=== PATIENT | male | born 1970 | race Caucasian/White ===

== ENCOUNTER 2020-10-22 22:07 | Inpatient (IN) | payer OTHER ==
[~2020-10-22] VITALS: Ht 190.5 cm; Wt 114.7 kg
[2020-10-22] MEDS ORDERED: IBUPROFEN 800 MG (MOTRIN) TAB PO ONE (23:00)
[2020-10-22] MEDS ORDERED: NS IV 1000 ML 1,000 ML IV SCH (23:00)
[2020-10-22] MEDS ORDERED: ACETAMINOPHEN 500 MG TAB (TYLENOL) PO ONE (23:00)
[2020-10-22 23:33] LABS: BILIRUBIN,URINE NEGATIVE (NEGATIVE); CLARITY,URINE CLEAR; COLOR,URINE YELLOW; GLUCOSE, URINE (UA) NEGATIVE (NEGATIVE); KETONES,URINE NEGATIVE (NEGATIVE); LEUKOCYTE ESTERASE ,URINE NEGATIVE (NEGATIVE); NITRITE,URINE NEGATIVE (NEGATIVE); PROTEIN,URINE NEGATIVE (NEGATIVE)
[2020-10-22 23:37] LABS: PROTHROMBIN TIME PATIENT 13.5 SEC (12.2-14.7)
[2020-10-22 23:38] LABS: BACTERIA,URINE TRACE /HPF; RBC,URINE 0-2 /HPF; SQUAMOUS EPITHELIAL CELL,UR RARE /HPF
[2020-10-23 00:04] LABS: BASOPHILS % (AUTO) 0 % (0-10); EOSINOPHILS # (AUTO) 0.1 10^3/uL (0.0-0.3); EOSINOPHILS % (AUTO) 1 % (0-10); HEMATOCRIT 42 % (40-54); HEMOGLOBIN 14.1 g/dL (13.3-17.7); LYMPHOCYTES # (AUTO) 0.5 10^3/uL (1.0-4.0); LYMPHOCYTES % (AUTO) 6 % (12-44); MEAN CORPUSCULAR HEMOGLOBIN 29 pg (25-34); MEAN CORPUSCULAR HGB CONC 34 g/dL (32-36); MEAN CORPUSCULAR VOLUME 86 fL (80-99); MEAN PLATELET VOLUME 10.3 fL (9.0-12.2); MONOCYTES # (AUTO) 0.5 10^3/uL (0.0-1.0); MONOCYTES % (AUTO) 7 % (0-12); NEUTROPHILS # (AUTO) 7.2 10^3/uL (1.8-7.8); NEUTROPHILS % (AUTO) 87 % (42-75); PLATELET COUNT 151 10^3/uL (130-400); WHITE BLOOD COUNT 8.2 10^3/uL (4.3-11.0)
[2020-10-23 00:08] LABS: ALBUMIN 3.9 GM/DL (3.2-4.5); CHLORIDE 103 MMOL/L (98-107); POTASSIUM 3.8 MMOL/L (3.6-5.0); SODIUM 136 MMOL/L (135-145)
[2020-10-23 00:10] LABS: CALCIUM 8.7 MG/DL (8.5-10.1)
[2020-10-23 00:11] LABS: GLUCOSE 110 MG/DL (70-105); TOTAL PROTEIN 6.5 GM/DL (6.4-8.2)
[2020-10-23 00:12] LABS: CARBON DIOXIDE 24 MMOL/L (21-32)
[2020-10-23 00:13] LABS: BILIRUBIN,TOTAL 0.7 MG/DL (0.1-1.0)
[2020-10-23 00:14] LABS: ALKALINE PHOSPHATASE 69 U/L (40-136)
[2020-10-23 00:15] LABS: CREATININE SERUM 1.11 MG/DL (0.60-1.30); GFR ESTIMATED > 60
[2020-10-23 00:16] LABS: BUN/CREATININE RATIO 17
[2020-10-23 00:17] LABS: ALANINE AMINOTRANSFERASE 82 U/L (0-55)
[2020-10-23 00:30] LABS: ERYTHROCYTE SEDIMENTATION RATE 7 MM/HR (0-15)
[2020-10-23] MEDS ORDERED: PIPERACILLIN/TAZO 4.5 GM VIAL (ZOSYN) IV ONE ×2 (00:42→05:44)
[2020-10-23] MEDS ORDERED: NS (IVPB) 100 ML ONE ×2 (00:42→05:44)
[2020-10-23] MEDS ORDERED: PIPERACILLIN/TAZOBACTAM (BULK) 4.5 GM in NS (IVPB) 100 ML IV ONE (00:45)
--- NOTE | 2020-10-23 01:08 | ED General ---
General Chief Complaint: Fever-Adult/Adol Stated Complaint: FEVER Nursing Triage Note: PATIENT STATES STARTED FEELING RUN DOWN AROUND NOON TODAY AND HAD A LOW GRADE FEVER WITH A TEMP MAX OF 100.0, TOOK TYLENOL AND LATER IN THE DAY NOTICED HAD REDNESS AND "PIN/NEEDLE" FEELING IN HIS TOES. WENT TO [facility] WAS TESTED FOR COVID WITH A RAPID TEST SHOWING NEGITIVE, FLU NEGITIVE, SENT HERE TO LAB FOR BLOOD WORK WITH RESULTS ACCORDING TO PATIENT OF AN "ELEVATED WBC COUNT". WAS PRESCRIBED BACTRIM AND GIVEN A "SHOT" OF ANTIBIOTIC. PRESENTS TONIGHT TOLD BY [facility] FOR D DIMER AND FOLLOW UP CARE. ALERT AND ORIENTED X4, CALL LIGHT IN REACH Nursing Sepsis Screen: Possible Sepsis Risk Source of Information: Patient History of Present Illness Date Seen by Provider: Oct 22, 2020 Time Seen by Provider: 22:50 Initial Comments PT ARRIVES VIA POV STATES HE BEGAN FEELING A LITTLE TIRED AROUND 10 AM TODAY, NOTICED FEVER OF 100 AROUND NOON SHORTLY AFTER THAT, PT BEGAN TO HAVE DISCOMFORT IN BOTH OF HIS FEET--PAIN AND "PINS AND NEEDLES" IN BOTH FEET AND NOTICED THAT BOTH FEET WERE RED. WENT TO [facility] FOR THIS PROBLEM AND HAD OUTPATIENT LAB DONE HERE, ALSO HAD NEGATIVE RAPID COVID-19 AND FLU TESTS THERE. ADDITIONALLY, PT GOT A CAT SCRATCH TO HIS LEFT SHOULDER 2-3 DAYS AGO AND THE AREA IS NOW RED, SWOLLEN AND TENDER. HE WAS GIVEN A SHOT OF UNKNOWN ANTIBIOTIC AND RX FOR BACTRIM AND HAS TAKEN 1 DOSE PT WAS CALLED THIS EVENING BY [facility] AND WAS TOLD TO COME HERE BECAUSE OF ELEVATED D-DIMER. PT HAS NOT TAKEN ANYTHING FOR HIS SYMPTOMS NO LOSS OF TASTE OR SMELL NO SORE THROAT NO COUGH NO SHORTNESS OF BREATH NO GI SYMPTOMS NO HEADACHE NO BODY ACHES NO NECK PAIN OR STIFFNESS NO URINARY SYMPTOMS PT IS NORMALLY HEALTHY, NO CHRONIC MEDICAL ILLNESSES, NO PRIOR HOSPITALIZATIONS OR SURGERIES. DOES NOT TAKE ANY MEDICATIONS PT DOES NOT SMOKE, DRINK OR USE DRUGS PCP: OCTAVIO AT DR. SHERYL OLIVARES Allergies and Home Medications Allergies Coded Allergies: No Known Drug Allergies (Unverified , 10/22/20) Patient Home Medication List Home Medication List Reviewed: Yes Review of Systems Review of Systems Constitutional: see HPI; No chills, No diaphoresis, No dizziness; fever, malaise EENTM: no symptoms reported; No nose congestion, No throat pain Respiratory: no symptoms reported; No cough, No short of breath, No wheezing Cardiovascular: no symptoms reported; No chest pain, No edema, No palpitations, No syncope, No vascular heart diseas Gastrointestinal: no symptoms reported; No abdominal pain, No diarrhea, No loss of appetite, No nausea, No vomiting Genitourinary: no symptoms reported Musculoskeletal: no symptoms reported Skin: see HPI Psychiatric/Neurological: See HPI; Denies Headache; Paresthesia, Tingling; Denies Weakness Hematologic/Lymphatic: No Symptoms Reported Immunological/Allergic: no symptoms reported Past Iihrujo-Emklcy-Mwvmun Hx Past Med/Social Hx: Reviewed and Corrections made Patient Social History Alcohol Use: Occasionally Uses Drug of Choice: DENIES Smoking Status: Never a Smoker Recent Infectious Disease Expo: No Recent Hopitalizations: No Immunizations Up To Date Date of Influenza Vaccine: Jul 12, 2020 Seasonal Allergies Seasonal Allergies: No Past Medical History Surgeries: No Respiratory: No Cardiac: No Neurological: No Genitourinary: No Gastrointestinal: No Musculoskeletal: No Endocrine: No HEENT: No Cancer: No Psychosocial: No Integumentary: No Blood Disorders: No Physical Exam Vital Signs Vital Signs - First Documented 10/22/20 10/23/20 22:40 01:50 Temp 38.2 Pulse 106 Resp 20 B/P (MAP) 130/89 (103) Pulse Ox 98 O2 Delivery Room Air Capillary Refill : Less Than 3 Seconds Height, Weight, BMI Height: '" Weight: lbs. oz. kg; 31.00 BMI Method: General Appearance: No Apparent Distress, WD/WN HEENT: PERRL/EOMI, TMs Normal, Normal ENT Inspection, Pharynx Normal Neck: Full Range of Motion, Normal Inspection, Non Tender, Supple; No Lymphadenopathy (L), No Lymphadenopathy (R) Respiratory: Normal Breath Sounds, No Accessory Muscle Use, No Respiratory Distress Cardiovascular: Regular Rate, Rhythm, No JVD, No Murmur, Normal Peripheral Pulses Gastrointestinal: Normal Bowel Sounds, No Organomegaly, No Pulsatile Mass, Non Tender, Soft Back: Normal Inspection, No CVA Tenderness, No Vertebral Tenderness Extremity: Normal Capillary Refill, Normal Range of Motion, No Calf Tenderness, Pedal Edema (1+ BILATERALLY), Other (LEFT SHOULDER WITH SCABBED WOUND WITH YELLOW CRUST, SURROUNDING ERYTHEMA, TENDERNESS AND MILD SWELLING OF 14 X 6 CM. N O FLUCTUANCE, NO DRAINAGE, NO STREAKS. BILATERAL FEET WITH 1+ EDEMA. BOTH FEET ERYTHEMATOUS, WITH MUCH MORE PRONOUNCED ERYTHEMA TO ALL TOES/DISTAL 1/3 OF FEET. ADDITIONALLY, BOTH FEET AND LOWER LEGS WITH DIFFUSE PETECHIAE--EXTENDS TO JUST BELOW KNEES BILATERALLY--THIS IS SYMMETRIC. GOOD CAPILLARY REFILL BILATERALLY. HYPERSENSITIVE--STATES IT FEELS LIKE PINS AND NEEDLES. ) Neurologic/Psychiatric: Alert, Oriented x3, No Motor/Sensory Deficits, Normal Mood/Affect, landscape crew member II-XII Norm as Tested Skin: Warm/Dry, Other (ALL SKIN IS FLUSHED. LOWER LEGS NOTED ABOVE. NO PALMAR RASH, NO PETECHIAE NOTED ANYWHERE ELSE, EXCEPT ON LOWER LEGS AND FEET. ) Focused Exam Lactate Level 10/22/20 22:55: Lactic Acid Level 0.88 Lactic Acid Level Progress/Results/Core Measures Suspected Sepsis Recent Fever Within 48 Hours: Yes Infection Criteria Present: Suspected New Infection New/Unexplained Altered Menta: No Sepsis Screen: Possible Sepsis Risk SIRS Temperature: Pulse: 106 Respiratory Rate: 20 Laboratory Tests 10/22/20 23:43: White Blood Count 8.2 Blood Pressure 130 /89 Mean: 103 10/22/20 22:55: Lactic Acid Level 0.88 Laboratory Tests 10/22/20 22:55: INR Comment 1.0 10/22/20 23:43: Creatinine 1.11, Platelet Count 151, Total Bilirubin 0.7 Results/Orders Lab Results Laboratory Tests Test 10/22/20 22:53 10/22/20 22:55 10/22/20 23:18 10/22/20 23:22 Range/Units Coronavirus 2019 ([facility]) Negative Negative Prothrombin Time 13.5 12.2-14.7 SEC INR Comment 1.0 0.8-1.4 Activated Partial Thromboplast Time 29 24-35 SEC Lactic Acid Level 0.88 0.50-2.00 MMOL/L Group A Streptococcus Screen NEGATIVE NEGATIVE Urine Color YELLOW Urine Clarity CLEAR Urine pH 6.0 5-9 Urine Specific [place] 1.020 1.016-1.022 Urine Protein NEGATIVE NEGATIVE Urine Glucose (UA) NEGATIVE NEGATIVE Urine Ketones NEGATIVE NEGATIVE Urine Nitrite NEGATIVE NEGATIVE Urine Bilirubin NEGATIVE NEGATIVE Urine Urobilinogen 0.2 < = 1.0 MG/DL Urine Leukocyte Esterase NEGATIVE NEGATIVE Urine RBC (Auto) TRACE-I NEGATIVE Urine RBC 0-2 /HPF Urine WBC NONE /HPF Urine Squamous Epithelial Cells RARE /HPF Urine Crystals NONE /LPF Urine Bacteria TRACE /HPF Urine Casts NONE /LPF Urine Mucus SMALL H /LPF Urine Culture Indicated NO Test 10/22/20 23:43 10/23/20 01:03 Range/Units White Blood Count 8.2 4.3-11.0 10^3/uL Red Blood Count 4.88 4.30-5.52 10^6/uL Hemoglobin 14.1 13.3-17.7 g/dL Hematocrit 42 40-54 % Mean Corpuscular Volume 86 80-99 fL Mean Corpuscular Hemoglobin 29 25-34 pg Mean Corpuscular Hemoglobin Concent 34 32-36 g/dL Red Cell Distribution Width 12.6 10.0-14.5 % Platelet Count 151 130-400 10^3/uL Mean Platelet Volume 10.3 9.0-12.2 fL Immature Granulocyte % (Auto) 0 % Neutrophils (%) (Auto) 87 H 42-75 % Lymphocytes (%) (Auto) 6 L 12-44 % Monocytes (%) (Auto) 7 0-12 % Eosinophils (%) (Auto) 1 0-10 % Basophils (%) (Auto) 0 0-10 % Neutrophils # (Auto) 7.2 1.8-7.8 10^3/uL Lymphocytes # (Auto) 0.5 L 1.0-4.0 10^3/uL Monocytes # (Auto) 0.5 0.0-1.0 10^3/uL Eosinophils # (Auto) 0.1 0.0-0.3 10^3/uL Basophils # (Auto) 0.0 0.0-0.1 10^3/uL Immature Granulocyte # (Auto) 0.0 0.0-0.1 10^3/uL Erythrocyte Sedimentation Rate 7 0-15 MM/HR Sodium Level 136 135-145 MMOL/L Potassium Level 3.8 3.6-5.0 MMOL/L Chloride Level 103 98-107 MMOL/L Carbon Dioxide Level 24 21-32 MMOL/L Anion Gap 9 5-14 MMOL/L Blood Urea Nitrogen 19 H 7-18 MG/DL Creatinine 1.11 0.60-1.30 MG/DL Estimat Glomerular Filtration Rate > 60 BUN/Creatinine Ratio 17 Glucose Level 110 H 70-105 MG/DL Calcium Level 8.7 8.5-10.1 MG/DL Corrected Calcium 8.8 8.5-10.1 MG/DL Total Bilirubin 0.7 0.1-1.0 MG/DL Aspartate Amino Transf (AST/SGOT) 66 H 5-34 U/L Alanine Aminotransferase (ALT/SGPT) 82 H 0-55 U/L Alkaline Phosphatase 69 40-136 U/L Lactate Dehydrogenase 246 H 125-220 U/L C-Reactive Protein High Sensitivity 7.07 H 0.00-0.50 MG/DL Total Protein 6.5 6.4-8.2 GM/DL Albumin 3.9 3.2-4.5 GM/DL Procalcitonin 0.22 H <0.10 NG/ML Monoscreen NEGATIVE NEGATIVE My Orders Orders - QUIQUE CRYSTAL DO Ed Iv/Invasive Line Start (10/22/20 22:55) Monitor-Rhythm Ecg Trace Only (10/22/20 22:55) Cbc With Automated Diff (10/22/20 22:55) Comprehensive Metabolic Panel (10/22/20 22:55) Hs C Reactive Protein (10/22/20 22:55) Lactic Acid Analyzer (10/22/20 22:55) Procalcitonin (Pct) (10/22/20 22:55) Protime With Inr (10/22/20 22:55) Partial Thromboplastin Time (10/22/20 22:55) Ua Culture If Indicated (10/22/20 22:55) Blood Culture (10/22/20 22:55) Erythrocyte Sedimentation Rate (10/22/20 22:55) Ibuprofen Tablet (Motrin Tablet) (10/22/20 23:00) Acetaminophen Tablet (Tylenol Tablet) (10/22/20 23:00) Ed Iv/Invasive Line Start (10/22/20 22:57) Ns Iv 1000 Ml (Sodium Chloride 0.9%) (10/22/20 23:00) Monotest (10/22/20 23:14) Rapid Strep A Screen (10/22/20 23:14) LDH (10/22/20 23:36) Covid 19 Inhouse Test (10/22/20 23:36) Chest 1 View, Ap/Pa Only (10/23/20 00:01) Piperacillin/Tazobactam (Bulk) (Zosyn In (10/23/20 00:45) Coronavirus Sars-Cov-2 So 2019 (10/23/20 00:43) Piperacillin Sodium/Tazobactam (Zosyn Vi (10/23/20 00:42) Ns (Ivpb) (Sodium Chloride 0.9% Ivpb Bag (10/23/20 00:42) Medications Given in ED Current Medications Medications Dose Ordered Sig/Gregg Route Start Time Stop Time Status Last Admin Dose Admin Acetaminophen 1,000 mg ONCE ONCE PO 10/22/20 23:00 10/22/20 23:01 DC 10/22/20 23:14 1,000 MG Ibuprofen 800 mg ONCE ONCE PO 10/22/20 23:00 10/22/20 23:01 DC 10/22/20 23:14 800 MG Vital Signs/I&O 10/22/20 10/22/20 10/22/20 10/23/20 22:40 23:14 23:14 01:50 Temp 38.2 38.2 38.2 Pulse 106 86 Resp 20 12 B/P (MAP) 130/89 (103) 97/61 Pulse Ox 98 93 O2 Delivery Room Air 10/23/20 02:38 Pulse Ox 96 O2 Delivery Room Air Capillary Refill : Less Than 3 Seconds Blood Pressure Mean: 103 Progress Note : Progress Note PLACED IN ISOLATION ROOM PPE WORN AT ALL TIMES COVID-19 TESTING PERFORMED GIVEN TYLENOL, MOTRIN AND IV FLUIDS GIVEN ANTIBIOTICS NO DETERIORATION IN PT'S CONDITION DURING ER STAY Diagnostic Imaging Comments CXR--NO ACUTE PROCESS, PENDING RADIOLOGIST REVIEW Reviewed: Reviewed by Me Departure Communication (Admissions) 0033--SPOKE WITH DR. ANDUJAR, HOSPITALIST, ACCEPTS PT FOR ADMIT. Impression Primary Impression: Cellulitis of left shoulder Additional Impressions: Vasculitis Person under investigation for COVID-19 CAT SCRATCH WITH CELLULITIS LEFT SHOULDER Disposition: ADMITTED INPATIENT Condition: Stable Admissions Decision to Admit Reason: Admit from ER (General) Decision to Admit/Date: Oct 23, 2020 Time/Decision to Admit Time: 00:35 Departure-Patient Inst. Referrals: NO,LOCAL PHYSICIAN (PCP/Family) Primary Care Physician QUIQUE CRYSTAL DO Oct 23, 2020 01:08
--- NOTE | 2020-10-23 01:40 | NUR ---
REPORT TO KODY GAMEZ
--- NOTE | 2020-10-23 02:05 | NUR ---
JESSICA KEENAN admitted to room 404-1, with an admitting diagnosis of CELLULITIS L SHOULDER DUE TO CAT SCRATCH, VASCULITIS BILATERAL LEGS AND FEET; ANNIE IBARRA, on 10/23/20 from ED via , accompanied by STAFF.JESSICA KEENAN introduced to surroundings, call light, bed controls, phone, TV, temperature control, lights, meal times, smoking policy, visitor policy, side rail policy, bathrooms and showers. Patient Rights given to patient in the handbook.JESSICA KEENAN verbalizes understanding that [facility] is not responsible for the loss or damage to any personal effects or valuables that are kept in the patients posession during their hospitalization.
[2020-10-23] MEDS ORDERED: fentaNYL INJECTION 100 MCG/2 ML AMP IV PRN (03:00)
[2020-10-23] MEDS ORDERED: ACETAMINOPHEN 500 MG TAB (TYLENOL) PO PRN (03:00)
[2020-10-23] MEDS ORDERED: IBUPROFEN 800 MG (MOTRIN) TAB PO PRN (03:00)
[2020-10-23] MEDS ORDERED: 1/2 NS IV SOLUTION 1,000 ML IV SCH ×2 (03:00→17:15)
[2020-10-23 05:51] LABS: BASOPHILS % (AUTO) 0 % (0-10); EOSINOPHILS # (AUTO) 0.1 10^3/uL (0.0-0.3); EOSINOPHILS % (AUTO) 1 % (0-10); HEMATOCRIT 44 % (40-54); LYMPHOCYTES # (AUTO) 0.5 10^3/uL (1.0-4.0); LYMPHOCYTES % (AUTO) 8 % (12-44); MEAN CORPUSCULAR HEMOGLOBIN 29 pg (25-34); MEAN CORPUSCULAR HGB CONC 33 g/dL (32-36); MEAN CORPUSCULAR VOLUME 88 fL (80-99); MONOCYTES # (AUTO) 0.4 10^3/uL (0.0-1.0); MONOCYTES % (AUTO) 6 % (0-12); NEUTROPHILS # (AUTO) 5.8 10^3/uL (1.8-7.8); NEUTROPHILS % (AUTO) 85 % (42-75); WHITE BLOOD COUNT 6.9 10^3/uL (4.3-11.0)
[2020-10-23 06:13] LABS: ALBUMIN 3.8 GM/DL (3.2-4.5); CHLORIDE 107 MMOL/L (98-107); POTASSIUM 3.7 MMOL/L (3.6-5.0); SODIUM 137 MMOL/L (135-145)
[2020-10-23 06:14] LABS: CALCIUM 8.7 MG/DL (8.5-10.1)
[2020-10-23 06:15] LABS: GLUCOSE 108 MG/DL (70-105); TOTAL PROTEIN 6.3 GM/DL (6.4-8.2)
[2020-10-23 06:16] LABS: CARBON DIOXIDE 21 MMOL/L (21-32)
[2020-10-23 06:17] LABS: BILIRUBIN,TOTAL 1.1 MG/DL (0.1-1.0)
[2020-10-23 06:19] LABS: ALKALINE PHOSPHATASE 69 U/L (40-136); CREATININE SERUM 1.05 MG/DL (0.60-1.30); GFR ESTIMATED > 60
[2020-10-23 06:20] LABS: BUN/CREATININE RATIO 16
[2020-10-23 06:22] LABS: ALANINE AMINOTRANSFERASE 155 U/L (0-55)
[2020-10-23] MEDS: PIPERACILLIN/TAZO 4.5 GM/NS 100 ML IV SCH ×6 (06:31→21:37)
--- NOTE | 2020-10-23 06:39 | Diagnostic Imaging Report ---
Clinical indication: Patient with fever. Exam: Portable chest x-ray upright view. Comparisons: None. Findings: Lungs/pleura: Lungs are clear. There is no pneumothorax. There is no pleural effusion. Mediastinum: Unremarkable. Pulmonary vasculature: Unremarkable. Heart: Unremarkable. Bones/extrathoracic soft tissue: There are mildly hypertrophic spurs involving the thoracic spine. Impression: There is no radiographic evidence of acute cardiopulmonary process. Dictated by: Dictated on workstation # [id number]
[2020-10-23 08:34] VITALS: BP 115/67
[2020-10-23] MEDS ORDERED: ACET-2267 PO (09:12)
[2020-10-23] MEDS ORDERED: BUTA1TAB9 PO (09:12)
[2020-10-23] MEDS ORDERED: IBUP-2473 PO (09:12)
--- NOTE | 2020-10-23 09:30 | NUR ---
SPOKE WITH THE PT (CALLED HIS ROOM PHONE) AND WENT THRU THE EXT MED HISTORY TO COMPLETE THE MED REC ON 10-22-2020 PT WAS PRESCRIBED AMOX/CLAV 875/125MG #20/10DS BY [facility], THE PT DID PICK THIS UP BUT HAD NOT STARTED TAKING PRIOR TO BEING ADMITTED. FOR THIS REASON I DID NOT INCLUDE THIS ON THE MED REC OTC MEDS: IBUPROFEN TYLENOL Addendum: 10/23/20 at 0948 by STEPHANIE ORNELAS CPhT AT THIS TIME I DID INCLUDE THE AMOX/CLAV ON THE MED REC FOR DISCHARGE PURPOSES
[2020-10-23] MEDS ORDERED: AMOX1TAB12 PO (09:47)
--- NOTE | 2020-10-23 10:52 | History & Physical-Hospitalist ---
History of Present Illness HPI/Chief Complaint Pt is a 50yoCM with no PMH who presented to the ER from [facility] urgent care for cellulitis. He reports that yesterday he noticed that his feet were tingling and he felt run down. He also developed a fever. He took a shower and his noted that he had some swelling and redness on his shoulder where he had been scratched by a cat a few days ago. He decided to seek evaluation at the [facility] Urgent Care and was found to be persistently febrile with an elevated d-dimer and referred to the ER for evaluation. He was swabbed from COVID there and here and the [place] have both been negative. Send out is pending. He reports feeling better today and that the swelling on his legs and feet have improved but erythema is still present. I attempted to call and update her as well but no answer and voicemail box was full. Source: patient Exam Limitations: no limitations Date Seen 10/23/20 Time Seen by a Provider: 10:46 Attending Physician Jaren Ha MD PCP No,Local Physician Referring Physician Date of Admission Oct 23, 2020 at 00:35 Home Medications & Allergies Home Medications Reviewed patient Home Medication Reconciliation performed by pharmacy medication reconciliations transport tank technician and/or nursing. Patients Allergies have been reviewed. Allergies Allergies Coded Allergies No Known Drug Allergies (Unverified10/22/20) Past Nbxujoe-Rcmmto-Ojbxlf Hx Past Med/Social Hx: Reviewed Nursing Past Med/Soc Hx Patient Social History Marrital Status: Alcohol Use: Occasionally Uses Recreational Drug Use: No Drug of Choice: DENIES Smoking Status: Never a Smoker Recent Foreign Travel: No Contact w/other who traveled: No Recent Hopitalizations: No Recent Infectious Disease Expo: No Immunizations Up To Date Date of Influenza Vaccine: Jul 12, 2020 Seasonal Allergies Seasonal Allergies: No Past Medical History History of Blood Disorders: No Family History Reviewed Nursing Family Hx No Pertinent Family Hx Review of Systems Constitutional: fever, malaise EENTM: No hoarseness, No nose congestion Respiratory: No cough, No short of breath Cardiovascular: No chest pain, No Hx of Intervention, No palpitations Gastrointestinal: No abdominal pain, No constipation, No nausea, No vomiting Genitourinary: No discharge, No dysuria Musculoskeletal: see HPI Skin: see HPI Psychiatric/Neurological: No Symptoms Reported Physical Exam Physical Exam Vital Signs Vital Signs - First Documented 10/22/20 10/23/20 22:40 01:50 Temp 38.2 Pulse 106 Resp 20 B/P (MAP) 130/89 (103) Pulse Ox 98 O2 Delivery Room Air Capillary Refill : Less Than 3 Seconds Height, Weight, BMI Height: '" Weight: lbs. oz. kg; 31.60 BMI Method: General Appearance: No Apparent Distress, WD/WN HEENT: PERRL/EOMI, Moist Mucous Membranes Neck: Normal Inspection, Supple Respiratory: Lungs Clear, No Accessory Muscle Use, No Respiratory Distress Cardiovascular: Regular Rate, Rhythm, No JVD, No Murmur Gastrointestinal: Normal Bowel Sounds, Non Tender, Soft Rectal: Deferred Extremity: Non Tender, No Calf Tenderness, No Pedal Edema, Other (inflammation noted on bilateral feet with erythema at bases of toes, no appreciable edema today) Neurologic/Psychiatric: Alert, Oriented x3 Skin: Erythema (on feet as noted above, cellulitis noted on left shoulder with erythema within demarcation and no crusting from abrasion) Results Results/Procedures Labs Laboratory Tests 10/22/20 23:43 10/23/20 05:11 Patient resulted labs reviewed. Imaging: Reviewed Imaging Report Imaging [facility] [place], [place] NAME: JESSICA KEENAN [facility] REC#: [id number] PT STATUS: ADM IN : 1970 PHYSICIAN: QUIQUE CRYSTAL DO ADMIT DATE: 10/23/20 Signed Date of Exam:10/23/20 CHEST 1 VIEW, AP/PA ONLY Clinical indication: Patient with fever. Exam: Portable chest x-ray upright view. Comparisons: None. Findings: Lungs/pleura: Lungs are clear. There is no pneumothorax. There is no pleural effusion. Mediastinum: Unremarkable. Pulmonary vasculature: Unremarkable. Heart: Unremarkable. Bones/extrathoracic soft tissue: There are mildly hypertrophic spurs involving the thoracic spine. Impression: There is no radiographic evidence of acute cardiopulmonary process. Dictated by: Dictated on workstation # [id number] Dict: 10/23/20 0623 Trans: 10/23/20 0845 JAYDEN [id number] Interpreted by: PEACE CHAND MD Electronically signed by: PEACE CHAND MD 10/23/20 0845 Assessment/Plan Admission Diagnosis Sepsis Admission Status: Inpatient Order (span 2 midnights) Reason for Inpatient Admission: see below Assessment and Plan Sepsis Cellulitis of shoulder Concern for cat scratch disease- start on azithro Continue Zosyn Feeling better today clinically Await cultures If remains febrile consider echo COVID pending Thrombocytopenia Down to 98 this AM from 151 last night Trend Discussed with Dr Jaime, consulted, appreciate assistance Has not received Lovenox Smear ordered Transaminitis trend Diagnosis/Problems Diagnosis/Problems (1) Cat scratch Status: Acute (2) Thrombocytopenia Status: Acute (3) Transaminitis Status: Acute (4) Cellulitis of left shoulder Status: Acute (5) Person under investigation for COVID-19 Status: Acute (6) Sepsis RAMA LOPEZ MD Oct 23, 2020 10:51
[2020-10-23] MEDS ORDERED: AZITHROMYCIN 250 MG TAB (ZITHROMAX) PO ONE (11:00)
[2020-10-23] MEDS ORDERED: ACET/BUTAL/CAFF (FIORICET) TAB PO PRN (11:00)
[2020-10-23 11:09] LABS: ABSOLUTE RETIC # 76 10e9/uL (24-90); RETICULOCYTE % 1.54 % (0.50-2.40)
[2020-10-23 11:12] LABS: HEMOGLOBIN 14.4 g/dL (13.3-17.7); MEAN PLATELET VOLUME 11.9 fL (9.0-12.2); PLATELET COUNT 131 10^3/uL (130-400)
[2020-10-23 11:24] LABS: FIBRIN DEGRADATION PRODUCTS 5.12 UG/ML (0.00-0.49); INR 1.1 (0.8-1.4); PROTHROMBIN TIME PATIENT 14.5 SEC (12.2-14.7)
[2020-10-23 11:55] LABS: BASOPHILS % (MANUAL) 1 %; EOSINOPHILS % (MANUAL) 1 %; LYMPHOCYTES % (MANUAL) 9 %; MONOCYTES % (MANUAL) 7 %; NEUTROPHILS % (MANUAL) 82 %
[2020-10-23 11:56] LABS: ACANTHOCYTES SLIGHT; BURR CELLS SLIGHT; TOXIC GRANULATION/VACUOLAZATIO 1+
--- NOTE | 2020-10-23 13:41 | NUR ---
"RD ASSESSMENT PMHx: no significant PMH PT INTERACTION: Received dietary consult for MST score. Note pt is currently COVID PUI, per chart review. Note all diet information for consult is per Srinivasa RN or per chart review. Srinivasa states current appetite appears good. Note PO intake 100% x1meal, per chart review. Srinivasa states no issues with n/v/c/d that he is aware of, and that his last BM was 10/22. Note pt not currently on bowel regimen per chart review. Note unable to determine recent wt hx, per chart review. Note unable to complete visual assessment d/t isolation precautions. Note unable to determine if pt meets criteria for malnutrition at this time. Est. kcal needs: [id number] kcal | 15-20 kcal/kg Est. Pro needs: 92-115 g Pro | 0.8-1.0 g Pro/kg PES STATEMENT: Given current PO intake, no nutrition diagnosis at this time (NO-1.1). INTERVENTION: Continue with current diet order of 2000mg Na diet. Will continue to follow and reassess as pt needs, intake, and status change. Sarah LOVELACE, MS RD LD [phone] cell"
--- NOTE | 2020-10-23 14:56 | Diagnostic Imaging Report ---
PROCEDURE: US Venous Lower Ext Leonel. TECHNIQUE: Multiple real-time grayscale images were obtained over the lower extremities in various projections, bilaterally. Additional duplex Doppler and color Doppler images were also obtained. INDICATION: Elevated d-dimer and leg swelling. FINDINGS: There is no evidence of right or left lower extremity DVT. Both lower extremity deep venous systems show normal compressibility with normal response to augmentation and Valsalva. No fluid collection or mass is detected. IMPRESSION: No evidence of right or left lower extremity DVT. Dictated by: Dictated on workstation # [id number]
[2020-10-23 16:00] VITALS: BP 120/72
[2020-10-23] MEDS: MICONAZOLE 2% POWDER (DESENEX AF) 90 GM TOP SCH (20:11)
--- NOTE | 2020-10-23 20:55 | CONSULTATION REPORT ---
DATE OF SERVICE: 10/23/2020 The patient is admitted to room 404. REFERRING PHYSICIAN: Maira Lake MD IMPRESSION: 1. A 50-year-old male admitted with febrile illness. 2. History of a feral cat scratch on the left shoulder with surrounding erythema consistent with cellulitis. 3. Erythema and swelling of both lower extremities, probably related to sepsis. 4. Thrombocytopenia of undetermined etiology, rule out DIC from sepsis versus medication induced, especially piperacillin. Continue to monitor. RECOMMENDATIONS: 1. Continue management of cellulitis/sepsis as you are doing. 2. Monitor CBC, CMP, DIC panel and C-reactive protein serially. 3. If he is improving from the infection standpoint and the platelet counts are continuing to decrease, may need to discontinue piperacillin. 4. If the platelet count is starting to improve along with a DIC panel, then most likely this was related to early sepsis and DIC and continue current treatment. 5. We will follow the patient with you. BRIEF HISTORY: The patient is a 50-year-old male, who complained of not feeling well and had a fever yesterday. He was initially evaluated at urgent care and then sent to the emergency room for further evaluation. He gave history of feral cat which scratched him on the left shoulder 4-5 days ago. He complained of that area being red and painful yesterday. He also complained of redness and swelling in his lower extremities since yesterday. He was evaluated at the emergency room with a diagnosis of cellulitis/sepsis and admitted to the hospital. Initial platelet count was 159,000 with a repeat today morning at 98,000. This was later corrected to 131,000, but a hematology consult was requested because of the unexplained thrombocytopenia. PAST MEDICAL HISTORY: Unremarkable with no major medical problems. PAST SURGICAL HISTORY: Left eye surgery during childhood following a trauma and a dental extraction in his teenage years. He has had a Agustin fundoplication done for gastroesophageal reflux disease approximately 8 or 9 years ago. SOCIAL HISTORY: The patient is and lives in [facility]. He has two children, aged 11 and 9 years, who lives at home. He denied any tobacco use and uses alcohol socially averaging 2 drinks 2 or 3 times a week. Denied any recreational drug use. 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 FAMILY HISTORY: Only significant for his father, who of coronary artery disease in his 70s and a brother who had a CVA in his 60s. PHYSICAL EXAMINATION: GENERAL: Today showed middle-aged male, moderately obese, awake and oriented, in no acute distress. VITAL SIGNS: His temperature was 36.9, pulse rate of 80, respirations 18, blood pressure 120/72, and oxygen saturation 98% on room air. His temperature at the time of admission was 38.2 degrees centigrade. HEENT: Normocephalic, extraocular muscles intact, conjunctivae pink, oral mucosa moist. NECK: Supple, with no JVD. No cervical, supraclavicular or axillary lymphadenopathy palpable. CHEST: Examination of the chest showed laceration in the left shoulder area from the cat scratch. There is surrounding erythema, which has been marked, this has not spread beyond the nakita on my evaluation and the patient mentioned that this is less red or painful than yesterday. Chest was symmetrical. LUNGS: Clear to auscultation without wheezes or rales. CARDIOVASCULAR: Regular in rate and rhythm. No murmurs or gallops heard. ABDOMEN: Slightly obese, soft, nontender with no hepatosplenomegaly or other masses palpable. EXTREMITIES: Showed some erythema of both feet and around his ankles, and this is fading according to the patient. His labs were reviewed. CBC done at the time of admission showed WBC 8.2, hemoglobin 14.1, platelet count of 151,000 with neutrophil count 7.2 and lymphocyte count 0.5. Repeat done today morning showed WBC 6.9, hemoglobin 14.4 and platelet count of 131,000, which was initially reported as 98,000. Differential count showed neutrophil count 5.8 and lymphocyte count 0.5. Absolute reticulocyte count was 76,000. Chemistry panel done at the time of admission showed normal electrolytes. BUN was 19 and creatinine 1.11 with GFR more than 60 mL per minute. Total bilirubin was 0.7, AST 66, ALT 82 with rest of the liver function studies within normal limits. C-reactive protein was elevated at 7.07. Repeat chemistry panel done today morning showed total bilirubin at 1.1, AST 145 and ALT 155. COVID-19 rapid screen was negative with PCR testing pending. Group A strep screen was negative and mono screen was negative. DIC panel done today morning showed protime at 14.5 with INR of 1.1. Fibrinogen was 381 and D-dimer was elevated at 5.12. Urinalysis done yesterday at the time of admission was unremarkable. Thank you for allowing me to participate in this patient's care. I will follow the patient with you and make appropriate recommendations. Job ID: [id number] DocumentID: [id number] Dictated Date: 10/23/2020 17:27:21 Engineering Scientist Date: 10/23/2020 20:53:48 Dictated By: FEDERICO PRESTON MD
[2020-10-23 23:00] VITALS: BP 119/65
[2020-10-24] MEDS: PIPERACILLIN/TAZO 4.5 GM/NS 100 ML IV SCH ×6 (05:25→20:33)
[2020-10-24 06:12] LABS: HEMOGLOBIN 13.7 g/dL (13.3-17.7)
[2020-10-24 06:14] LABS: MEAN PLATELET VOLUME 11.2 fL (9.0-12.2)
[2020-10-24 06:19] LABS: ALBUMIN 3.6 GM/DL (3.2-4.5); CHLORIDE 107 MMOL/L (98-107); POTASSIUM 4.2 MMOL/L (3.6-5.0); SODIUM 139 MMOL/L (135-145)
[2020-10-24 06:20] LABS: CALCIUM 8.7 MG/DL (8.5-10.1)
[2020-10-24 06:21] LABS: GLUCOSE 106 MG/DL (70-105); TOTAL PROTEIN 6.3 GM/DL (6.4-8.2)
[2020-10-24 06:23] LABS: BILIRUBIN,TOTAL 1.1 MG/DL (0.1-1.0); CARBON DIOXIDE 24 MMOL/L (21-32)
[2020-10-24 06:25] LABS: ALKALINE PHOSPHATASE 112 U/L (40-136); CREATININE SERUM 0.95 MG/DL (0.60-1.30); FIBRIN DEGRADATION PRODUCTS 0.81 UG/ML (0.00-0.49); GFR ESTIMATED > 60; INR 1.1 (0.8-1.4); PROTHROMBIN TIME PATIENT 14.1 SEC (12.2-14.7)
[2020-10-24 06:26] LABS: BUN/CREATININE RATIO 13
[2020-10-24 06:28] LABS: ALANINE AMINOTRANSFERASE 242 U/L (0-55)
[2020-10-24 08:00] VITALS: BP 127/68
[2020-10-24] MEDS: AZITHROMYCIN 250 MG TAB (ZITHROMAX) PO SCH (08:32)
[2020-10-24] MEDS: MICONAZOLE 2% POWDER (DESENEX AF) 90 GM TOP SCH ×2 (08:33→20:33)
--- NOTE | 2020-10-24 10:16 | Progress Note - Hospitalist ---
Subjective HPI/CC On Admission Pt is a 50yoCM with no PMH who presented to the ER from [facility] urgent care for cellulitis. He reports that yesterday he noticed that his feet were tingling and he felt run down. He also developed a fever. He took a shower and his noted that he had some swelling and redness on his shoulder where he had been scratched by a cat a few days ago. He decided to seek evaluation at the [facility] and was found to be persistently febrile with an elevated d-dimer and referred to the ER for evaluation. He was swabbed from COVID there and here and the rapids have both been negative. Send out is pending. He reports feeling better today and that the swelling on his legs and feet have improved but erythema is still present. I attempted to call and update her as well but no answer and voicemail box was full. Focused Exam Lactate Level 10/22/20 22:55: Lactic Acid Level 0.88 Objective Exam Vital Signs Vital Signs Date Time Temp Pulse Resp B/P (MAP) Pulse Ox O2 Delivery O2 Flow Rate FiO2 10/24/20 08:00 97 Room Air 10/24/20 08:00 36.7 84 18 127/68 (87) Capillary Refill : Less Than 3 SecondsLess Than 3 Seconds Results/Procedures Lab Laboratory Tests 10/24/20 05:20 Patient resulted labs reviewed. Imaging: Reviewed Imaging Report Assessment/Plan Assessment and Plan Assess & Plan/Chief Complaint Sepsis Cellulitis of shoulder Concern for cat scratch disease- start on azithro Continue Zosyn Feeling better today clinically Await cultures If remains febrile consider echo COVID pending Thrombocytopenia Down to 98 this AM from 151 last night Trend Discussed with Dr Jaime, consulted, appreciate assistance Has not received Lovenox Smear ordered Transaminitis trend Diagnosis/Problems Diagnosis/Problems (1) Cat scratch Status: Acute (2) Thrombocytopenia Status: Acute (3) Transaminitis Status: Acute (4) Cellulitis of left shoulder Status: Acute (5) Person under investigation for COVID-19 Status: Acute (6) Sepsis RAMA LOPEZ MD Oct 24, 2020 10:16
--- NOTE | 2020-10-24 11:28 | Progress Note - Hospitalist ---
Subjective HPI/CC On Admission Date Seen by Provider: Oct 24, 2020 Time Seen by Provider: 11:23 Pt is a 50yoCM with no PMH who presented to the ER [place] [facility] [place] for cellulitis. He reports that yesterday he noticed that his feet were tingling and he felt run down. He also developed a fever. He took a shower and his noted that he had some swelling and redness on his shoulder where he had been scratched by a cat a few days ago. He decided to seek evaluation at the [facility] and was found to be persistently febrile with an elevated d-dimer and referred to the ER for evaluation. He was swabbed from COVID there and here and the rapids have both been negative. Send out is pending. He reports feeling better today and that the swelling on his legs and feet have improved but erythema is still present. I attempted to call and update her as well but no answer and voicemail box was full. Subjective/Events-last exam Pt reports feeling better today. No complaints. Redness on his feet nearly resolved. Swelling and redness on shoulder improving. Focused Exam Lactate Level 10/22/20 22:55: Lactic Acid Level 0.88 Objective Exam Vital Signs Vital Signs Date Time Temp Pulse Resp B/P (MAP) Pulse Ox O2 Delivery O2 Flow Rate FiO2 10/24/20 08:00 97 Room Air 10/24/20 08:00 36.7 84 18 127/68 (87) Capillary Refill : Less Than 3 SecondsLess Than 3 Seconds General Appearance: No Apparent Distress, WD/WN Respiratory: Lungs Clear, No Respiratory Distress Cardiovascular: Regular Rate, Rhythm, No Murmur Extremity: Other (shoulder with erythema noted, still within demracation, swelling improved) Results/Procedures Lab Laboratory Tests 10/24/20 05:20 Patient resulted labs reviewed. Imaging: Reviewed Imaging Report Assessment/Plan Assessment and Plan Assess & Plan/Chief Complaint Sepsis Cellulitis of shoulder Concern for cat scratch disease Continue on Azithromycin, add Rifampin due to transaminitis Continue Zosyn BC NGTD If remains febrile consider echo for culture negative endocarditis (though no murmur and clinically improving so likely will not need) COVID NGTD Thrombocytopenia Plts recheck and were 131 yesterday, now 127 D-dimer down from 5.12 to 0.[address] Addison, consulted, appreciate assistance Smear reviewed by Dr Jaime Transaminitis trend, start reifampin as above Diagnosis/Problems Diagnosis/Problems (1) Cat scratch Status: Acute (2) Thrombocytopenia Status: Acute (3) Transaminitis Status: Acute (4) Cellulitis of left shoulder Status: Acute (5) Person under investigation for COVID-19 Status: Acute (6) Sepsis RAMA LOPEZ MD Oct 24, 2020 11:28
--- NOTE | 2020-10-24 11:49 | Diagnostic Imaging Report ---
PROCEDURE: US Abdomen, limited. TECHNIQUE: Multiple realtime grayscale images were obtained over the abdomen in various projections. INDICATION: Elevated liver enzymes. FINDINGS: Liver is mildly enlarged at 18.3 cm. No discrete liver mass is detected. Portal vein is patent and demonstrates normal direction of flow. Gallbladder is without stones or sludge. No wall thickening or biliary ductal dilatation is identified. Pancreas is obscured. Aorta is obscured. IVC is unremarkable. Right kidney is without calculi or hydronephrosis. There is no ascites. IMPRESSION: 1. Mild hepatomegaly. 2. No evidence of cholelithiasis or acute cholecystitis. Dictated by: Dictated on workstation # [id number]
[2020-10-24] MEDS: RIFAMPIN 150 MG PO SCH ×2 (12:58→20:33)
--- NOTE | 2020-10-24 13:51 | Progress Note ---
Standard Progress Note Progress Notes/Assess & Plan Date Seen by a Provider: Oct 24, 2020 Time Seen by a Provider: 13:49 Progress/Assessment & Plan Mr. Kaye is a 50-year-old male admitted with febrile illness. He was noted to have cellulitis of the left shoulder following a cat scratch. He was found to have thrombocytopenia and a hematology consult was obtained. Patient is on treatment with Zosyn as well as azithromycin. He is feeling better today with the reduction in the swelling around the ankles and feet as well as the erythema. The left shoulder erythema and pain is also improving. Transaminases continues to be elevated. Blood cultures are negative so far. Because of liver dysfunction, rifampin is being started today. Lab work reviewed and platelets are stable at 127,000. DIC panel stable or better with decrease in D-dimer and slightly elevated fibrinogen level. Continue to monitor serially. We will fo llow patient with you. Focused Exam Lactate Level 10/22/20 22:55: Lactic Acid Level 0.88 FEDERICO PRESTON Oct 24, 2020 13:51
[2020-10-24 16:00] VITALS: BP 153/69
[2020-10-25 00:19] VITALS: BP 132/81
[2020-10-25] MEDS: PIPERACILLIN/TAZO 4.5 GM/NS 100 ML IV SCH ×6 (05:26→21:32)
[2020-10-25 08:00] VITALS: BP 140/80
[2020-10-25] MEDS: MICONAZOLE 2% POWDER (DESENEX AF) 90 GM TOP SCH ×2 (08:44→19:26)
[2020-10-25] MEDS: RIFAMPIN 150 MG PO SCH (08:44)
[2020-10-25] MEDS: AZITHROMYCIN 250 MG TAB (ZITHROMAX) PO SCH (08:44)
[2020-10-25 10:19] LABS: BASOPHILS % (AUTO) 1 % (0-10); EOSINOPHILS # (AUTO) 0.2 10^3/uL (0.0-0.3); EOSINOPHILS % (AUTO) 5 % (0-10); HEMATOCRIT 44 % (40-54); HEMOGLOBIN 14.4 g/dL (13.3-17.7); LYMPHOCYTES # (AUTO) 0.5 10^3/uL (1.0-4.0); LYMPHOCYTES % (AUTO) 13 % (12-44); MEAN CORPUSCULAR HEMOGLOBIN 29 pg (25-34); MEAN CORPUSCULAR HGB CONC 33 g/dL (32-36); MEAN CORPUSCULAR VOLUME 87 fL (80-99); MEAN PLATELET VOLUME 10.1 fL (9.0-12.2); MONOCYTES # (AUTO) 0.5 10^3/uL (0.0-1.0); MONOCYTES % (AUTO) 11 % (0-12); NEUTROPHILS % (AUTO) 70 % (42-75); PLATELET COUNT 167 10^3/uL (130-400); WHITE BLOOD COUNT 4.3 10^3/uL (4.3-11.0)
[2020-10-25 10:37] LABS: ALANINE AMINOTRANSFERASE 208 U/L (0-55); ALKALINE PHOSPHATASE 144 U/L (40-136); BILIRUBIN,TOTAL 1.8 MG/DL (0.1-1.0); BUN/CREATININE RATIO 9; CALCIUM 9.3 MG/DL (8.5-10.1); CARBON DIOXIDE 22 MMOL/L (21-32); CHLORIDE 107 MMOL/L (98-107); GFR ESTIMATED > 60; GLUCOSE 124 MG/DL (70-105); POTASSIUM 3.8 MMOL/L (3.6-5.0); SODIUM 140 MMOL/L (135-145); TOTAL PROTEIN 7.2 GM/DL (6.4-8.2)
--- NOTE | 2020-10-25 13:03 | Progress Note - Hospitalist ---
Subjective HPI/CC On Admission Date Seen by Provider: Oct 25, 2020 Time Seen by Provider: 13:02 Pt is a 50yoCM with no PMH who presented to the ER from [facility] urgent care for cellulitis. He reports that yesterday he noticed that his feet were tingling and he felt run down. He also developed a fever. He took a shower and his noted that he had some swelling and redness on his shoulder where he had been scratched by a cat a few days ago. He decided to seek evaluation at the [facility] and was found to be persistently febrile with an elevated d-dimer and referred to the ER for evaluation. He was swabbed from COVID there and here and the rapids have both been negative. Send out is pending. He reports feeling better today and that the swelling on his legs and feet have improved but erythema is still present. I attempted to call and update her as well but no answer and voicemail box was full. Subjective/Events-last exam Pt reports he is feeling much better. Was up walking the halls earlier. Focused Exam Lactate Level 10/22/20 22:55: Lactic Acid Level 0.88 Objective Exam Vital Signs Vital Signs Date Time Temp Pulse Resp B/P (MAP) Pulse Ox O2 Delivery O2 Flow Rate FiO2 10/25/20 12:23 85 10/25/20 08:00 36.5 20 140/80 (100) 96 Room Air Capillary Refill : Less Than 3 SecondsLess Than 3 Seconds General Appearance: No Apparent Distress, WD/WN Respiratory: Lungs Clear, No Respiratory Distress Cardiovascular: Regular Rate, Rhythm, No Murmur Results/Procedures Lab Laboratory Tests 10/25/20 10:09 Patient resulted labs reviewed. Imaging: Reviewed Imaging Report Assessment/Plan Assessment and Plan Assess & Plan/Chief Complaint Sepsis Cellulitis of shoulder Concern for cat scratch disease Continue on Azithromycin and Rifampin Continue Zosyn BC NGTD, afebrile x24 hours COVID negative Thrombocytopenia Plts improving D-dimer down from 5.12 to 0.[address] Jaime, consulted, appreciate assistance Smear reviewed by Dr Jaime Transaminitis improving since started on rifampin DVT ppx: Lovenox Diagnosis/Problems Diagnosis/Problems (1) Cat scratch Status: Acute (2) Thrombocytopenia Status: Acute (3) Transaminitis Status: Acute (4) Cellulitis of left shoulder Status: Acute (5) Person under investigation for COVID-19 Status: Acute (6) Sepsis Status: Acute Qualifiers: Sepsis type: sepsis due to unspecified organism Sepsis acute organ dysfunction status: with acute organ dysfunction Severe sepsis acute organ dysfunction type: unspecified Severe sepsis shock status: without septic shock Qualified Codes: A41.9 - Sepsis, unspecified organism; R65.20 - Severe sepsis without septic shock RAMA LOPEZ MD Oct 25, 2020 13:03
[2020-10-25] MEDS ORDERED: ENOXAPARIN 40 MG/0.4 ML (LOVENOX) SYR SQ SCH (13:30)
[2020-10-25 15:55] VITALS: BP 129/77
[2020-10-25] MEDS: NS IV SCH (19:26)
[2020-10-25] MEDS: RIFAMPIN IV SCH (19:26)
[2020-10-26] VITALS: BP 126/78
[2020-10-26 04:59] LABS: HEMOGLOBIN 14.1 g/dL (13.3-17.7); MEAN PLATELET VOLUME 10.6 fL (9.0-12.2); WHITE BLOOD COUNT 4.1 10^3/uL (4.3-11.0)
[2020-10-26 05:09] LABS: ALBUMIN 3.7 GM/DL (3.2-4.5)
[2020-10-26 05:10] LABS: CHLORIDE 105 MMOL/L (98-107); POTASSIUM 4.1 MMOL/L (3.6-5.0); SODIUM 139 MMOL/L (135-145)
[2020-10-26 05:11] LABS: CALCIUM 9.2 MG/DL (8.5-10.1)
[2020-10-26 05:12] LABS: GLUCOSE 106 MG/DL (70-105); TOTAL PROTEIN 6.6 GM/DL (6.4-8.2)
[2020-10-26 05:13] LABS: CARBON DIOXIDE 24 MMOL/L (21-32)
[2020-10-26 05:14] LABS: BILIRUBIN,TOTAL 1.2 MG/DL (0.1-1.0)
[2020-10-26 05:15] LABS: ALKALINE PHOSPHATASE 138 U/L (40-136)
[2020-10-26 05:16] LABS: GFR ESTIMATED > 60
[2020-10-26 05:17] LABS: BUN/CREATININE RATIO 11
[2020-10-26 05:19] LABS: ALANINE AMINOTRANSFERASE 146 U/L (0-55)
[2020-10-26] MEDS: PIPERACILLIN/TAZO 4.5 GM/NS 100 ML IV SCH ×2 (05:34)
[2020-10-26 08:27] VITALS: BP 144/91
[2020-10-26] MEDS ORDERED: RIFA300C3 PO (08:35)
[2020-10-26] MEDS ORDERED: AZIT250T12 PO (08:35)
--- NOTE | 2020-10-26 08:41 | Discharge Inst-Simple/Standard ---
Discharge Inst-Standard Patient Instructions/Follow Up Plan of Care/Instructions/FU: Please continue to take your medications as written. Please follow up with your primary care doctor to follow up this hospital stay. Activity as Tolerated: Yes Discharge Diet: No Restrictions Return to The Hospital For: Fever, worsening swelling, drainage, pain or redness, confusion, chest pain, shortness of breath, if you feel you are getting worse. RAMA LOPEZ MD Oct 26, 2020 08:41
--- NOTE | 2020-10-26 08:49 | Discharge Summary ---
Diagnosis/Chief Complaint Date of Admission Oct 23, 2020 at 00:35 Date of Discharge Discharge Date: Oct 26, 2020 Admission Diagnosis Sepsis Primary Care No,Local Physician Discharge Diagnosis (1) Cat scratch Status: Acute (2) Thrombocytopenia Status: Acute (3) Transaminitis Status: Acute (4) Cellulitis of left shoulder Status: Acute (5) Person under investigation for COVID-19 Status: Acute (6) Sepsis Status: Acute Discharge Summary Discharge Physical Exam Allergies: Coded Allergies: No Known Drug Allergies (Unverified , 10/22/20) Vitals & I&Os Vital Signs Date Time Temp Pulse Resp B/P (MAP) Pulse Ox O2 Delivery O2 Flow Rate FiO2 10/26/20 12:00 36.6 79 16 144/91 96 Room Air General Appearance: No Apparent Distress, WD/WN Cardiovascular: Regular Rate, Rhythm, No Murmur Gastrointestinal: Normal Bowel Sounds, Non Tender, Soft Neurologic/Psychiatric: Alert, Oriented x3 Hospital Course patient was admitted secondary to cellulitis and Cat Scratch disease. He suffered a cat scratch on his right upper arm a few days prior to admission. He developed an extensive cellulitis in this area but also had transaminitis. He w as started on Zosyn for his cellulitis and treated with azithromycin and rifampin to cover for Cat Scratch disease. After initiation of these treatments as transaminitis improved. He defervesced and had negative blood cultures as well. He was continued on antibiotics upon discharge and is to follow-up with his primary care doctor at the [facility] in [place] next week. Labs (last 24 hrs) Microbiology 10/22/20 Throat Culture - Final, Complete No Beta Strep isolated 10/22/20 Blood Culture - Preliminary, Resulted No growth Patient resulted labs reviewed. Pending Labs Imaging: Reviewed Imaging Report Discussion & Recommendations Discharge Planning: >30 minutes discharge planning Discharge Home Medications: Active Scripts Active Rifampin 300 Mg Capsule 300 Mg PO BID Azithromycin 250 Mg Tablet 250 Mg PO DAILY Reported Amox Tr-K Clv 875-125 mg Tab (Amoxicillin/Potassium Clav) 1 Each Tablet 1 Ea PO BID MED HAS NOT BEEN STARTED FILLED 10-22-2020 #20/10 DAY SUPPLY Ibuprofen 200 Mg Tablet 200 Mg PO Q8H PRN Tylenol Extra Strength (Acetaminophen) 500 Mg Tablet 1,000 Mg PO Q6H PRN [id number]-[id number] 50-325-40 (Butalb/Acetaminophen/Caffeine) 1 Each Tablet 1-2 Ea PO Q4- 6H PRN Instructions to patient/family Please see electronic discharge instructions given to patient. Problem Qualifiers (1) Sepsis: Sepsis type: sepsis due to unspecified organism Sepsis acute organ dysfunction status: with acute organ dysfunction Severe sepsis acute organ dysfunction type: unspecified Severe sepsis shock status: without septic shock Qualified Codes: A41.9 - Sepsis, unspecified organism; R65.20 - Severe sepsis without septic shock RAMA LOPEZ MD Oct 26, 2020 08:49
[2020-10-26] MEDS: AZITHROMYCIN 250 MG TAB (ZITHROMAX) PO SCH (09:38)
[2020-10-26] MEDS: NS IV SCH (09:38)
[2020-10-26] MEDS: RIFAMPIN IV SCH (09:38)
[2020-10-26] MEDS: MICONAZOLE 2% POWDER (DESENEX AF) 90 GM TOP SCH (09:41)
[2020-10-26 12:00] VITALS: BP 144/91
== END 2020-10-26 13:44 | disposition home or self-care (01) | DRG 872 ==
LOC: EDUNIT# 22:07 → ER 22:10 → 4TH 10-23 00:35
PROVIDERS: ADMIT Internal Medicine; ATTEND Internal Medicine
DX: A41.9 Sepsis, unspecified organism (principal); L03.114 Cellulitis of left upper limb; S40.212A Abrasion of left shoulder, initial encounter; I77.6 Arteritis, unspecified; D69.6 Thrombocytopenia, unspecified; R74.01 Elevation of levels of liver transaminase levels; Z20.822 Contact with and (suspected) exposure to COVID-19; W55.03XA Scratched by cat, initial encounter
CPT/HCPCS: 36415; 71045; 76705; 80053; 81000; 83605; 83615; 84145; 85007; 85025; 85027; 85045; 85055; 85379; 85384; 85610; 85652; 85730; 86141; 86308; 87040; 87430; 87635; 93041; 93970

== ENCOUNTER → 2020-10-22 | Outpatient (CLI) | payer OTHER ==
[~2020-10-22] MED LIST: ACET-2267 PO; AMOX1TAB12 PO; BUTA1TAB9 PO; IBUP-2473 PO
[2020-10-22 19:46] LABS: HEMATOCRIT 47 % (40-54); HEMOGLOBIN 15.8 g/dL (13.3-17.7); MEAN CORPUSCULAR HEMOGLOBIN 29 pg (25-34); MEAN CORPUSCULAR HGB CONC 33 g/dL (32-36); MEAN CORPUSCULAR VOLUME 87 fL (80-99); MEAN PLATELET VOLUME 10.2 fL (9.0-12.2); PLATELET COUNT 183 10^3/uL (130-400); WHITE BLOOD COUNT 8.5 10^3/uL (4.3-11.0)
[2020-10-22 20:03] LABS: FIBRIN DEGRADATION PRODUCTS 1.05 UG/ML (0.00-0.49); PROTHROMBIN TIME PATIENT 13.4 SEC (12.2-14.7)
[2020-10-22 20:14] LABS: ALANINE AMINOTRANSFERASE 81 U/L (0-55); ALBUMIN 4.6 GM/DL (3.2-4.5); ALKALINE PHOSPHATASE 76 U/L (40-136); BILIRUBIN,TOTAL 0.9 MG/DL (0.1-1.0); BUN/CREATININE RATIO 15; CALCIUM 9.7 MG/DL (8.5-10.1); CARBON DIOXIDE 22 MMOL/L (21-32); CHLORIDE 105 MMOL/L (98-107); CREATININE SERUM 1.22 MG/DL (0.60-1.30); GFR ESTIMATED > 60; GLUCOSE 101 MG/DL (70-105); SODIUM 140 MMOL/L (135-145); TOTAL PROTEIN 7.7 GM/DL (6.4-8.2)
[2020-10-22 20:16] LABS: BASOPHILS % (AUTO) 0 % (0-10); EOSINOPHILS % (AUTO) 1 % (0-10); LYMPHOCYTES # (AUTO) 0.3 10^3/uL (1.0-4.0); LYMPHOCYTES % (AUTO) 4 % (12-44); MONOCYTES # (AUTO) 0.4 10^3/uL (0.0-1.0); MONOCYTES % (AUTO) 5 % (0-12); NEUTROPHILS # (AUTO) 7.7 10^3/uL (1.8-7.8); NEUTROPHILS % (AUTO) 90 % (42-75)
[2020-10-22 20:31] LABS: BAND NEUTROPHILS 2 %; BASOPHILS % (MANUAL) 0 %; EOSINOPHILS % (MANUAL) 1 %; LYMPHOCYTES % (MANUAL) 1 %; MONOCYTES % (MANUAL) 4 %; NEUTROPHILS % (MANUAL) 91 %; RBC MORPH NORMAL; REACTIVE LYMPHOCYTES 1 %
== END ==
LOC: LAB 19:25
PROVIDERS: ATTEND Nurse Practitioner Family
DX: M79.89 Other specified soft tissue disorders (principal); R53.83 Other fatigue; R50.81 Fever presenting with conditions classified elsewhere; R23.3 Spontaneous ecchymoses
CPT/HCPCS: 36415; 80053; 85007; 85027; 85379; 85610; 86141